=== PATIENT | male | born 2000 | race Hispanic/Latino ===

== ENCOUNTER 2020-07-08 21:30 | Emergency (ER) | payer OTHER ==
[~2020-07-08] VITALS: Ht 172.7 cm; Wt 92.1 kg
[2020-07-08 21:30] VITALS: BP 155/68
[2020-07-08] MEDS ORDERED: OXYMETAZOLINE 0.05% NASAL SPRAY (AFRIN) ONE (22:10)
[2020-07-08 22:14] LABS: HEMOGLOBIN 15.4 g/dl (13.5-17.5); MEAN CORPUSCULAR HEMOGLOBIN 27.3 pg (27.0-33.0); MEAN CORPUSCULAR HGB CONC 32.8 g/dl (32.0-36.5); MEAN CORPUSCULAR VOLUME 83.3 fl (80.0-96.0); PLATELET COUNT, AUTOMATED 238 10^3/uL (150-450); RED BLOOD COUNT 5.64 10^6/uL (4.30-6.10); WHITE BLOOD COUNT 7.5 10^3/uL (4.0-10.0)
[2020-07-09] MEDS ORDERED: AUGM875T28 PO (18:15)
[2020-07-09] MEDS ORDERED: BACI500O21 TOP (18:15)
[2020-07-09] MEDS ORDERED: HM S0.65 NARES (18:15)
== END 2020-07-08 22:35 | disposition home or self-care (01) ==
LOC: M ED 21:30
DX: R04.0 Epistaxis (principal)

== ENCOUNTER 2020-07-09 12:57 | Emergency (ER) | payer OTHER ==
[~2020-07-09] VITALS: Ht 172.7 cm; Wt 90.9 kg
[2020-07-09] MEDS ORDERED: OXYMETAZOLINE 0.05% NASAL SPRAY (AFRIN) ONE (15:00)
[2020-07-09 15:19] LABS: BASO # 0.1 10^3/uL (0.0-0.2); BASO % 0.9 % (0.0-1.0); EOS # 0.1 10^3/uL (0.0-0.5); EOS % 1.5 % (0.0-3.0); HEMATOCRIT 47.6 % (42.0-52.0); HEMOGLOBIN 15.9 g/dl (13.5-17.5); LYMPH # 1.9 10^3/uL (1.5-5.0); LYMPH % 29.5 % (24.0-44.0); MEAN CORPUSCULAR HEMOGLOBIN 27.7 pg (27.0-33.0); MEAN CORPUSCULAR HGB CONC 33.4 g/dl (32.0-36.5); MEAN CORPUSCULAR VOLUME 83.1 fl (80.0-96.0); MONO # 0.6 10^3/uL (0.0-0.8); MONO % 8.7 % (2.0-8.0); NEUTROPHILS # 3.8 10^3/uL (1.5-8.5); NEUTROPHILS % 59.1 % (36.0-66.0); PLATELET COUNT, AUTOMATED 215 10^3/uL (150-450); RED BLOOD COUNT 5.73 10^6/uL (4.30-6.10); WHITE BLOOD COUNT 6.5 10^3/uL (4.0-10.0)
[2020-07-09 15:29] LABS: PROTHROMBIN TIME 13.4 SECONDS (12.5-14.3)
[2020-07-09 15:30] LABS: PARTIAL THROMBOPLASTIN TIME 27.3 SECONDS (24.2-38.5)
[2020-07-09] MEDS ORDERED: SILVER NITRATE APPLICATOR TOP ONE (16:20)
[2020-07-09] MEDS ORDERED: HM S0.65 NARES (18:15)
[2020-07-09] MEDS ORDERED: AUGM875T28 PO (18:15)
[2020-07-09] MEDS ORDERED: BACI500O21 TOP (18:15)
[2020-07-09 19:01] VITALS: BP 160/82
[2020-07-10] MEDS ORDERED: HYDR-3713 PO (19:11)
[2020-07-10] MEDS ORDERED: AUGM875T28 PO (19:11)
[2020-07-10] MEDS ORDERED: HM S0.65 NARES (19:11)
== END 2020-07-09 19:06 | disposition home or self-care (01) ==
LOC: M ED 12:57
DX: R04.0 Epistaxis (principal)

== ENCOUNTER 2020-07-10 16:39 | Emergency (ER) | payer OTHER ==
[~2020-07-10] VITALS: Ht 172.7 cm; Wt 90.9 kg
[~2020-07-10 16:39] MED LIST: AUGM875T28 PO; BACI500O21 TOP; HM S0.65 NARES
[2020-07-10] MEDS ORDERED: NORCO, ANEXSIA 5/325MG TABLET (HYDROcodone/ACETAMINOPHEN) PO ONE (19:10)
[2020-07-10] MEDS ORDERED: AUGM875T28 PO (19:11)
[2020-07-10] MEDS ORDERED: HYDR-3713 PO (19:11)
[2020-07-10] MEDS ORDERED: HM S0.65 NARES (19:11)
[2020-07-10 19:24] VITALS: BP 165/80
== END 2020-07-10 19:25 | disposition home or self-care (01) ==
LOC: M ED 16:39
DX: R04.0 Epistaxis (principal); G89.18 Other acute postprocedural pain; J34.89 Other specified disorders of nose and nasal sinuses

== ENCOUNTER → 2020-08-03 | Outpatient (CLI) | payer OTHER ==
[~2020-08-03] MED LIST changes: +HYDR-3713 PO
--- NOTE | 2020-08-03 10:22 | REP ---
INDICATION: CHRONIC PANSINUSITIS. COMPARISON: None. TECHNIQUE: Axial CT images with multiplanar reformations. FINDINGS: There is mild mucosal thickening seen in the bilateral maxillary sinuses with a retention cyst at the floor of the left maxillary sinus. Mucosal thickening seen in the ethmoidal air cells posterior to the ostiomeatal unit on the left. The remainder of the paranasal sinuses are clear. Mastoid air cells are clear. Dentition appears unremarkable. IMPRESSION: Findings of mild, chronic sinusitis on the left. No fluid levels. <Electronically signed by Neil Pineda > 08/03/20 [id number]
== END ==
LOC: M RAD 09:35
PROVIDERS: ATTEND Physician Assistant Medical
DX: J32.4 Chronic pansinusitis (principal); R04.0 Epistaxis

== ENCOUNTER 2020-08-30 09:52 | Day surgery (SDC) | payer OTHER ==
[~2020-08-30] VITALS: Ht 172.7 cm; Wt 92.5 kg
[~2020-08-30 09:52] MED LIST changes: +LR 1,000 ML IV ONE
[2020-08-30] MEDS ORDERED: ONDANSETRON 4MG/2ML VIAL As Ordered ONE (14:17)
[2020-08-30] MEDS ORDERED: fentaNYL 100 MCG/2 ML INJECTION (J3010) As Ordered ONE (14:17)
[2020-08-30] MEDS ORDERED: METOCLOPRAMIDE INJ 10MG/2ML VIAL (J2765 PER 1) As Ordered ONE (14:17)
[2020-08-30] MEDS ORDERED: LIDOCAINE 2% 100MG/5ML SDV (FOR ANES.) As Ordered ONE (14:17)
[2020-08-30] MEDS ORDERED: propofoL 200 MG/20 ML VIAL As Ordered ONE (14:17)
[2020-08-30] MEDS ORDERED: KETOROLAC 60MG 2ML VIAL As Ordered ONE (14:17)
[2020-08-30] MEDS ORDERED: MIDAZOLAM INJ 2MG/2ML VIAL (J2250 PER 1MG) As Ordered ONE (14:18)
[2020-08-30] MEDS ORDERED: SILVER NITRATE APPLICATOR As Ordered ONE (14:35)
[2020-08-30] MEDS ORDERED: OXYMETAZOLINE 0.05% NASAL SPRAY (AFRIN) As Ordered ONE (14:36)
[2020-08-30] MEDS ORDERED: EPINEPHrine 1MG/ML INJ 30ML MD-VIAL As Ordered ONE ×2 (14:36→15:19)
[2020-08-30] MEDS ORDERED: SUGAMMADEX SODIUM 500 MG/5 ML VIAL (BRIDION) As Ordered ONE (15:10)
[2020-08-30] MEDS ORDERED: LR 1,000 ML IV SCH ×2 (16:15→16:20)
[2020-08-30] MEDS ORDERED: oxyCODONE 5MG TAB PO PRN (16:15)
[2020-08-30] MEDS ORDERED: ONDANSETRON 4MG/2ML VIAL IV PRN (16:15)
[2020-08-30] MEDS ORDERED: HYDROMORPHONE HCL 0.5 MG/ 0.5 ML SYRINGE (J1170 PER 1) IV PRN (16:15)
[2020-08-30] MEDS ORDERED: fentaNYL 100 MCG/2 ML INJECTION (J3010) IV PRN (16:15)
[2020-08-30 17:31] VITALS: BP 129/60
--- NOTE | 2020-08-31 09:41 | RO ---
OPERATIVE NOTE DATE OF OPERATION: 08/30/2020 PREOPERATIVE DIAGNOSIS: Left nasopharyngeal mass, epistaxis. POSTOPERATIVE DIAGNOSIS: Left nasal cavity mass. PROCEDURE: Nasal endoscopy. SURGEON: Nicolás Car MD ANIMAL DAMAGE CONTROL AGENT: ANESTHESIA: General. CLINICAL PREAMBLE: This 20-year-old man presented to the emergency department with significant left epistaxis requiring nasal packing. Following removal of the packing he was found to have significantly deviated nasal septum precluding examination of the left nasal cavity. CT scan images have been reviewed by myself and radiologist Dr. Connolly. The mass was noted in the left nasal cavity extending to the left nasopharynx with the possibility of mass being juvenile angiofibroma. Management options including examination under anesthesia to assess the nature of the mass have been discussed with the patient, he understood and consented to the procedure. DESCRIPTION OF PROCEDURE: The patient was identified in the preop holding and was brought to the operating room in stable condition. In supine position on the operating table the patient received general anesthesia followed by orotracheal intubation by anesthesia. The patient was prepped and draped in sterile fashion for the procedure. Both nasal cavities were decongested using pledgets soaked in 1:100,000 Epinephrine. After waiting a period of time the pledgets were removed. Examination of the right nasal cavity revealed no evidence of mucosal mass lesion in right nasal cavity. The nasopharynx was free of mass lesion or ulceration. Using the Cyclops nasal endoscope the posterior end of the left nasal cavity was visualized and found to have mass which was vascular in appearance. Examination of the left nasal cavity revealed significant deviated nasal septum into the left side of the nasal cavity. Exam with pediatric nasal endoscope the mass was noted to be emanating near the left sphenopalatine area. Due to concern of this being vascular lesion decision was made not to perform any biopsy due to concern of possible uncontrolled hemorrhage. At this time the procedure was terminated. [place] not to have aspect of the mass lesion. At the end of the procedure sponge and instrument counts correct. Complications none. Estimated blood loss less than 10 mL. General anesthesia was reversed and patient was extubated and brought to the recovery room in stable condition.
== END 2020-08-30 17:36 | disposition home or self-care (01) ==
LOC: M SDC 09:52
PROVIDERS: ATTEND Otolaryngology
DX: J34.9 Unspecified disorder of nose and nasal sinuses (principal); R04.0 Epistaxis; J34.2 Deviated nasal septum
CPT/HCPCS: 31231; 88305; J1885; J2250; J2405; J2765; J3010

== ENCOUNTER → 2020-09-06 | Outpatient (CLI) | payer OTHER ==
[~2020-09-06] MED LIST changes: -LR 1,000 ML IV ONE; +PROHANCE 279.3MG/ML 15ML VIAL As Ordered ONE; +PROHANCE 279.3MG/ML 5ML VIAL As Ordered ONE
--- NOTE | 2020-09-06 14:30 | REP ---
INDICATION: NASAL PHARYNX JUSTYN PLASMO OF UNCER BEHAVIOR. COMPARISON: Comparison is made with CT study of the maxillofacial bones dated August 03, 2020.. TECHNIQUE: Axial and coronal imaging planes utilized. T1 and T2 weighted sequences include spin echo, fast spin echo, inversion recovery and post gadolinium enhanced images. Gadolinium enhancement dose is 18 mL of intravenous ProHance. FINDINGS: There is a heterogeneously and intensely enhancing soft tissue mass in the posterior aspect of the left nasal cavity extending in in the nasopharynx. Anteriorly, this is adjacent to or arising from the posterior aspect of the left nasal turbinates. Superiorly, it appears to have eroded into the inferior aspect of the left side of the sphenoid sinus. It measures 3.8 cm craniocaudal by 2.8 cm anteroposterior by 1.7 cm right to left. On precontrast and postcontrast images there are curvilinear flow voids within the lesion suggesting a vascular etiology. Its signal intensity is somewhat heterogeneous. It appears to be a solid heterogeneously enhancing lesion. The bony nasal septum deviates to the left with a septal beak. There is mucosal thickening in the maxillary sinuses bilaterally, left more so than right. Mild mucosal thickening is seen in the left ethmoid air cells. No intraorbital abnormality is seen. No intracranial abnormality is observed. No mandibular or floor of mouth lesion is seen. Parotid glands are unremarkable. Normal appearing upper cervical lymph nodes are seen. Cortical and medullary bone signal intensity is normal. IMPRESSION: Heterogeneously enhancing mass in the left posterior nasal cavity which has eroded the floor of the sphenoid sinus on the left and either arises from or abuts the posterior aspect of the nasal turbinates. There appear to be a vascular flow void channels within the lesion. This is most compatible with juvenile nasopharyngeal angiofibroma. Other mass lesions are in the differential. The lesion is seen to be extending into the floor of the left side of the sphenoid sinus. <Electronically signed by Brice Trujillo > 09/06/20 [id number]
== END ==
LOC: M RAD 12:11
PROVIDERS: ATTEND Physician Assistant Medical
DX: D37.05 Neoplasm of uncertain behavior of pharynx (principal)
CPT/HCPCS: 70543; A9576

== ENCOUNTER → 2021-10-01 | Outpatient (CLI) | payer OTHER ==
[~2021-10-01] MED LIST changes: -PROHANCE 279.3MG/ML 15ML VIAL As Ordered ONE; -PROHANCE 279.3MG/ML 5ML VIAL As Ordered ONE
== END ==
LOC: M WUC 13:22
PROVIDERS: ATTEND Physician Assistant
DX: S13.4XXA Sprain of ligaments of cervical spine, initial encounter (principal); S43.491A Other sprain of right shoulder joint, initial encounter